=== PATIENT | male | born 1955 | race Caucasian/White ===

== ENCOUNTER → 2021-03-25 | Outpatient (CLI) | payer BC | END | disposition home or self-care (01) | LOC: LABWHC1 10:19 | PROVIDERS: ATTEND Urology | DX: R97.20 Elevated prostate specific antigen [PSA] (principal) | CPT/HCPCS: 36415; 84153 ==

== ENCOUNTER → 2021-11-18 | Outpatient (CLI) | payer BC | END | disposition home or self-care (01) | LOC: LABWHC1 09:01 | PROVIDERS: ATTEND Urology | DX: R97.20 Elevated prostate specific antigen [PSA] (principal) | CPT/HCPCS: 36415; 84153 ==

== ENCOUNTER → 2023-08-09 | Outpatient (CLI) | payer BC | END | disposition home or self-care (01) | LOC: LABWHC1 15:22 | PROVIDERS: ATTEND Urology | DX: R97.20 Elevated prostate specific antigen [PSA] (principal) | CPT/HCPCS: 36415; 84153; 84154 ==

== ENCOUNTER → 2024-02-11 | Outpatient (CLI) | payer BC ==
[2024-02-12 04:26] LABS: Blood Urea Nitrogen 29.5 mg/dL (9.0-27.0); Calcium 10.5 mg/dL (8.7-10.3); Carbon Dioxide 26.8 mmol/L (21.6-31.8); Chloride 101 mmol/L (96-109); Glucose 106 mg/dL (70-110); Potassium 4.6 mmol/L (3.5-5.5); Sodium 139 mmol/L (135-145)
[2024-02-12 05:14] LABS: Basophils # (A) 0.04 X 10*3/uL (0.00-0.10); Basophils % (A) 0.7 %; Eosinophils # (A) 0.16 X 10*3/uL (0.04-0.35); Eosinophils % (A) 2.6 %; HCT 43.4 % (39.6-50.0); HGB 14.3 g/dL (13.0-17.0); Lymphocytes # (A) 1.41 X 10*3/uL (0.90-5.00); MCH 32.8 pg (27.0-32.0); MCHC 32.9 g/dL (32.0-37.0); MCV 99.5 FL (80.0-97.0); Mean Platelet Volume 10.8 FL (9.5-12.2); Monocytes # (A) 0.83 X 10*3/uL (0.20-1.00); Monocytes % (A) 13.5 %; NRBC Per 100 WBC 0 X 10*3/uL (0.00-0.01); Neutrophils # (A) 3.67 X 10*3/uL (1.80-7.70); Neutrophils % (A) 59.9 %; Platelet Count 204 X 10*3/uL (140-440); RBC 4.36 X 10*6/uL (4.40-5.60); RDW 12.4 % (11.5-14.5); WBC 6.13 X 10*3/uL (4.50-10.00)
== END | disposition home or self-care (01) ==
LOC: LABPAT 15:23
PROVIDERS: ATTEND Urology
DX: Z01.812 Encounter for preprocedural laboratory examination (principal); R97.20 Elevated prostate specific antigen [PSA]
CPT/HCPCS: 80048; 85025

== ENCOUNTER → 2024-02-15 | Day surgery (SDC) | payer BC ==
--- NOTE | 2024-02-11 07:57 | P.GSHP ---
History of Present Illness H&P Date: 02/11/24 Chief Complaint: Elevated PSA Patient is a 68-year-old white male whose father had prostate cancer. The patient has had an elevated PSA level which was most recently 10.8. BECKY reveals an area of prominence at the right mid base. MRI of the prostate shows a prostate volume of 113 cc, with a PI-RADS 4 lesion within the right peripheral zone. He underwent a prostate ultrasound with biopsies in 2010, showing no evidence of malignancy. His prostate volume at that time was 55 cc. - Cardiovascular Cardiovascular: Reports high blood pressure - Genitourinary (Male) Genitourinary: Reports urinary frequency Past Medical History Past Medical History: Hyperlipidemia, Hypertension, Prostate Disorder Additional Past Medical History / Comment(s): spot on prostate per MRI History of Any Multi-Drug Resistant Organisms: None Reported Past Surgical History: Hernia Repair Additional Past Surgical History / Comment(s): KRISTOPHER. INGUINAL HERNIA REPAIR, colonoscopy Past Anesthesia/Blood Transfusion Reactions: No Reported Reaction Smoking Status: Never smoker - Past Family History Father Family Medical History: Cancer, CVA/TIA Additional Family Medical History / Comment(s): prostate cancer. Medications and Allergies Home Medications Medication Instructions Recorded Confirmed Type Irbesartan 150 mg PO DAILY 02/09/24 02/09/24 History Rosuvastatin Calcium 20 mg PO DAILY 02/09/24 02/09/24 History Allergies Allergy/AdvReac Type Severity Reaction Status Date / Time No Known Allergies Allergy Verified 02/09/24 13:34 Surgical - Exam - General well developed, well nourished, no distress - Genitourinary normal penis with no external lesions, testicles non-tender - Rectum Rectum: normal sphincter tone, no masses, other (Enlarged with prominence at the right mid base) - Psychiatric oriented to time, oriented to person, oriented to place, speech is normal, memory intact Assessment and Plan (1) Elevated prostate specific antigen [PSA] Status: Acute Code(s): R97.20 - ELEVATED PROSTATE SPECIFIC ANTIGEN [PSA] SNOMED Code(s): 820930769 Plan: The patient will undergo MRI-Ultrasound fusion transrectal biopsies of the prostate. The procedure has been reviewed in detail with the patient. He has been made aware of potential risks, which include anesthesia, bleeding, and infection. He is also aware that a negative biopsy does not completely rule out prostate cancer.
[~2024-02-15] MED LIST: LIDOCAINE 1% INJ 10MG/ML (20 ML MDV) ONE; MIDAZOLAM 2 MG/2 ML VIAL ONE; ONDANSETRON 4 MG/2 ML VIAL ONE; PROPOFOL 10 MG/ML 20 ML VIAL IV ONE; Pre Op ABX Message 1 EACH MISC MISCELLANE ONE; fentaNYL (PF) 50 MCG/ML 2 ML AMP ONE
[2024-02-15] MEDS: GENTAMICIN 40 MG/ML 2 ML VIAL IM PRN (14:07)
[2024-02-15] MEDS: LACTATED RINGERS 1,000 ML IV SCH (14:08)
[2024-02-15] MEDS: ONDANSETRON 4 MG/2 ML VIAL IVP ONE (14:11)
[2024-02-15] MEDS: DEXAMETHASONE SOD PHOSPHATE 4 MG/ML 1 ML VIAL IVP ONE (14:11)
[2024-02-15 14:17] VITALS: TEMP 97.9
--- NOTE | 2024-02-15 15:18 | P.OP ---
Date of Procedure: 02/15/24 Preoperative Diagnosis: Elevated PSA Postoperative Diagnosis: Same Procedure(s) Performed: MRI fusion biopsies of the prostate Implants: None Anesthesia: MAC Surgeon: Jadon Tellez Pathology: other (prostate biopsies) Condition: stable Disposition: PACU Indications for Procedure: Patient is a 68-year-old white male whose father had prostate cancer. The patient has had an elevated PSA level which was most recently 10.8. BECKY reveals an area of prominence at the right mid base. MRI of the prostate shows a prostate volume of 113 cc, with a PI-RADS 4 lesion within the right peripheral zone. He underwent a prostate ultrasound with biopsies in 2010, showing no evidence of malignancy. His prostate volume at that time was 55 cc. Description of Procedure: The patient was taken to the operating room and placed in the left lateral decubitus position. The [email or web address] transrectal ultrasound probe was placed intrarectally. It was then placed within the stand of the [employer] MRI/TRUS Fusion for Prostate Biopsy system. The prostate was imaged in both the axial and sagittal planes Using the Biopsy gun, 3 biopsies were obtained from the target lesion, there were was one lesions, . The remaining 16 biopsies of the peripheral zone were obtained utilizing a standard template, in addition two biopsies were taken of the right transitional zone, and 2 biopsies were taken of the left transitional zone once the procedure was completed, the ultrasound probe was removed. The patient tolerated the procedure well was taken to the recovery room stable condition
[2024-02-15 16:01] VITALS: BP 146/80; PULSE 72; RESP 16
== END ==
LOC: OR 12:42
PROVIDERS: ATTEND Urology
DX: C61 Malignant neoplasm of prostate (principal); N41.0 Acute prostatitis; E78.5 Hyperlipidemia, unspecified; I10 Essential (primary) hypertension; K21.9 Gastro-esophageal reflux disease without esophagitis; Z79.899 Other long term (current) drug therapy; Z80.42 Family history of malignant neoplasm of prostate; Z98.890 Other specified postprocedural states
CPT/HCPCS: 55700; 88344; 88305; J2250; J1580; J1100; J2405; J2001; J3010; J2704

== ENCOUNTER 2024-07-20 09:32 | Day surgery (SDC) | payer BC ==
[2024-07-20] MEDS ORDERED: DEXAMETHASONE SOD PHOSPHATE 4 MG/ML 1 ML VIAL ONE ×2 (10:28)
[2024-07-20] MEDS ORDERED: ONDANSETRON 4 MG/2 ML VIAL ONE ×2 (10:28)
[2024-07-20] MEDS ORDERED: ceFAZolin 1,000 MG VIAL ONE (12:00)
[2024-07-20] MEDS ORDERED: LACTATED RINGERS 1,000 ML BAG ONE (12:00)
[2024-07-20] MEDS ORDERED: SODIUM CHLORIDE 0.9% 50 ML BAG ONE (12:00)
[2024-07-20] MEDS ORDERED: PROPOFOL 10 MG/ML 20 ML VIAL IV ONE (12:12)
[2024-07-20] MEDS ORDERED: LIDOCAINE 1% INJ 10MG/ML (20 ML MDV) ONE (12:12)
[2024-07-20] MEDS ORDERED: fentaNYL (PF) 50 MCG/ML 2 ML AMP ONE (12:12)
--- NOTE | 2024-07-21 15:56 | HP ---
HISTORY AND PHYSICAL DATE OF OUTPATIENT SURGERY: 07/20/2024. CHIEF COMPLAINT: Prostate cancer. HISTORY OF PRESENT ILLNESS: The patient is a 68-year-old white male with a family history of prostate cancer. He underwent prostate biopsies in 2010 that showed no evidence of malignancy. However, his PSA level has gradually increased and was 10.4 in December 2023. MRI of the prostate revealed a prostate volume of 113 mL with a suspicious lesion. He ultimately underwent MRI fusion biopsies, revealing prostate cancer in 5 of 15 biopsies. His Prolaris score is 2.7. He has elected to be treated with IMRT and now comes for SpaceOAR implant. PAST MEDICAL HISTORY: Hypertension and hyperlipidemia. MEDICATIONS: 1. Irbesartan. 2. Lipitor. 3. CoQ10. ALLERGIES: None. PAST SURGICAL HISTORY: Bilateral inguinal hernia repair. FAMILY HISTORY: Significant for prostate cancer (father and uncle). SOCIAL HISTORY: The patient is . He quit smoking in 2002. REVIEW OF SYSTEMS: CARDIOVASCULAR: Significant for high blood pressure. GENITOURINARY: Significant for nocturia. PHYSICAL EXAMINATION: GENERAL: The patient is a well-developed, well-nourished cooperative white male, in no apparent distress. VITAL SIGNS: Pulse 64, respirations 16, blood pressure 150/82. CHEST: Normal respiratory effort. ABDOMEN: Soft, nontender, no mass. GENITOURINARY: Normal phallus, normal testes. RECTAL: Normal anal sphincter tone, no rectal mass. The prostate is enlarged, and prominence is noted within the right lateral lobe at the base. IMPRESSION: Adenocarcinoma of the prostate. PLAN: SpaceOAR implant. The patient is aware that the purpose of this is to reduce rectal toxicity related to radiation therapy. He is also aware of potential risks, which include anesthesia, bleeding, and infection. He is aware that the procedure will need to be aborted if there is any evidence of rectal wall perforation during the procedure. MMODL / IJN: [id number] /
--- NOTE | 2024-07-21 15:58 | OP ---
OPERATIVE REPORT DATE OF SERVICE : 07/20/2024 PREOPERATIVE DIAGNOSIS: Adenocarcinoma of the prostate. POSTOPERATIVE DIAGNOSIS: Adenocarcinoma of the prostate. PROCEDURE PERFORMED: SpaceOAR implant. ANESTHESIA: MAC. ESTIMATED BLOOD LOSS: 5 cc. FLUIDS GIVEN: 400 cc crystalloid. COMPLICATIONS: None. SPECIMENS REMOVED: None. OPERATIVE FINDINGS: Excellent separation created between the prostate and rectum. INDICATIONS: The patient is a 68-year-old white male with prostate cancer, being treated with radiation therapy. He now comes for SpaceOAR implant to reduce the risk of radiation- induced rectal toxicity. DESCRIPTION OF PROCEDURE: The patient was taken to the operating room and placed in the dorsal lithotomy position, with his legs supported in Shiva stirrups. The external genitalia were prepped and draped sterilely. The [employer] transrectal ultrasound probe was placed in for rectally, within the stabilizing stand. The prostate was imaged. The perineal skin was anesthetized by injecting 1% lidocaine subcutaneously. With the prostate imaged by ultrasound, the SpaceOAR implant treatment needle was slowly advanced into the plane between the prostate and the rectum. After mixing the SpaceOAR constituents in the standard fashion, the SpaceOAR was injected, after confirming the needle to be in the midline. Approximately, 12 to 14 mm of distance was created between the prostate and the rectum. The patient tolerated the procedure well and was taken to the recovery room in stable condition. MMODL / IJN: [id number] /
== END 2024-07-20 13:20 ==
LOC: OR 09:32
PROVIDERS: ATTEND Urology
DX: C61 Malignant neoplasm of prostate (principal); E78.5 Hyperlipidemia, unspecified; I10 Essential (primary) hypertension; Z87.891 Personal history of nicotine dependence; Z79.899 Other long term (current) drug therapy; Z85.46 Personal history of malignant neoplasm of prostate; Z90.79 Acquired absence of other genital organ(s)